=== PATIENT | male | born 1955 | race Caucasian/White ===

== ENCOUNTER 2017-07-04 03:52 | Observation (INO) | payer OTHER ==
[2017-07-04] MEDS ORDERED: Enoxaparin(*) 80 MG/0.8 ML SYR SUBCUT ONE (04:20)
--- NOTE | 2017-07-04 04:36 | ED ---
Valdemar Cao Tecjoon, scribed for Manju Sellers MD on 07/04/17 at 0434 . HPI Chest Pain - HPI Summary HPI Summary: This patient is a 61 year old male BIBA to [facility] with a chief complaint of chest pain since 2100 today. Patient states that he had heart palpitations. [facility]. 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 The pain is rated 0/10 in severity. Symptoms aggravated by nothing. Symptoms alleviated by nothing. - History of Current Complaint Chief Complaint: EDChestPainROMI Time Seen by Provider: 07/04/17 03:59 Hx Obtained From: Patient Onset/Duration: Started Hours Ago, Resolved Timing: Constant Initial Severity: Moderate Current Severity: None Pain Intensity: 0 Pain Scale Used: 0-10 Numeric Aggravating Factor(s): Nothing Alleviating Factor(s): Nothing Associated Signs and Symptoms: Positive: Other: - palpitations - Allergy/Home Medications Allergies/Adverse Reactions: Allergies Allergy/AdvReac Type Severity Reaction Status Date / Time No Known Allergies Allergy Verified 07/04/17 04:15 PMH/Surg Hx/FS Hx/Imm Hx Previously Healthy: No Endocrine/Hematology History: Reports: Hx Thyroid Disease Cardiovascular History: Reports: Hx Hypertension, Hx Supraventricular Ventricular Tachycardia Opthamlomology History: Denies: Hx Legally Blind EENT History: Denies: Hx Deafness Infectious Disease History: No Infectious Disease History: Denies: Traveled Outside the [place] in Last 30 Days - Family History Known Family History: Positive: Hypertension - Social History Alcohol Use: None Hx Substance Use: No Substance Use Type: Reports: None Hx Tobacco Use: No Smoking Status (MU): Never Smoked Tobacco Review of Systems Negative: Fever Positive: Palpitations, Chest Pain All Other Systems Reviewed And Are Negative: Yes Physical Exam - Summary Physical Exam Summary: VITAL SIGNS: Reviewed. GENERAL: Patient is a well-developed and nourished male who is lying comfortable in the stretcher. Patient is not in any acute respiratory distress. HEAD AND FACE: No signs of trauma. No ecchymosis, hematomas or skull depressions. No sinus tenderness. EYES: PERRLA, EOMI x 2, No injected conjunctiva, no nystagmus. EARS: Hearing grossly intact. Ear canals and tympanic membranes are within normal limits. MOUTH: Oropharynx within normal limits. NECK: Supple, trachea is midline, no adenopathy, no JVD, no carotid bruit, no c- spine tenderness, neck with full ROM. CHEST: Symmetric, no tenderness at palpation LUNGS: Clear to auscultation bilaterally. No wheezing or crackles. CVS: Irregular heartbeat ABDOMEN: Soft, non-tender. No signs of distention. No rebound no guarding, and no masses palpated. Bowel sounds are normal. EXTREMITIES: FROM in all major joints, no edema, no cyanosis or clubbing. NEURO: Alert and oriented x 3. No acute neurological deficits. Speech is normal and follows commands. SKIN: Dry and warm Triage Information Reviewed: Yes Vital Signs On Initial Exam: Initial Vitals Temp Pulse Resp BP Pulse Ox 98.3 F 70 16 122/97 96 07/04/17 04:02 07/04/17 04:02 07/04/17 04:02 07/04/17 04:02 07/04/17 04:02 Vital Signs Reviewed: Yes Diagnostics - Vital Signs Vital Signs Temp Pulse Resp BP Pulse Ox 07/04/17 04:02 98.3 F 70 16 122/97 96 - Laboratory Lab Statement: Any lab studies that have been ordered have been reviewed, and results considered in the medical decision making process. - EKG 0423 Cardiac Rate: NL EKG Rhythm: Atrial Fibrillation - 81 BPM EKG Interpretation: A fib (81 BPM), Normal axis, normal interval, no ischemic changes. Chest Pain Course/Dx - Course Course Of Treatment: This patient is a 61 year old male BIBA to [facility] with a chief complaint of chest pain since 2100 today. Patient states that he had heart palpitations. [facility] went to [facility]. 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 An EKG, taken 422, reveals A fib (81 BPM), Normal axis, normal interval, no ischemic changes. In the ED course the patient was given Enoxparin. We discussed patient care with Dr. Melton (Hospitalist) and they agreed to admit the patient. Patient will be admitted with a diagnosis of atrial fibrillation. The patient is agreeable with this plan. - Diagnoses Provider Diagnoses: Atrial fibrillation - Provider Notifications Discussed Care Of Patient With: Rui Melton - Hospitalist Time Discussed With Above Provider: 04:34 - We discussed patient care with Dr. Melton (Hospitalist) and they agreed to admit the patient. Instructed by Provider To: Admit As Inpatient Discharge - Sign-Out/Discharge Documenting (check all that apply): Discharge - admitted - Discharge Plan Condition: Stable Disposition: ADMITTED TO [facility] The documentation as recorded by the Valdemar us Tecjoon accurately reflects the service I personally performed and the decisions made by , Manju Sellers MD.
[2017-07-04] MEDS ORDERED: Diltiazem DRIP* 100 MG/100 ML ADDV.BAG IVPB SCH (05:00)
[2017-07-04] MEDS ORDERED: Diltiazem IV VIAL* 125 MG in NS 0.9% 100 ML* 100 ML IV SCH ×3 (05:30→06:02)
[2017-07-04] MEDS: Diltiazem TAB* 30 MG PO SCH ×2 (06:06→13:03)
[2017-07-04 06:20] LABS: ABS Basophils 0 10^3/ul (0-0.2); ABS Eosinophils 0 10^3/ul (0-0.6); ABS Lymphocytes 0.8 10^3/ul (1.0-4.8); ABS Monocytes 0.5 10^3/ul (0-0.8); ABS Neutrophils 6.5 10^3/ul (1.5-7.7); ABS Nucleated RBC 0 10^3/ul; Eosinophil % 0.2 % (0-6); Hematocrit 48 % (42-52); Hemoglobin 16.8 g/dl (14.0-18.0); Lymphocyte % 10.6 % (25-47); Mean Corpuscular HGB Conc 35 g/dl (31-36); Mean Corpuscular Hemoglobin 32 pg (27-31); Mean Corpuscular Volume 90 fL (80-94); Mean Platelet Volume 7.3 um3 (7.4-10.4); Nucleated Red Blood Cells % 0.1; Platelet Count 237 10^3/ul (150-450); Red Blood Count 5.29 10^6/ul (4.0-5.4); Red Cell Distribution Width 14 % (10.5-15); White Blood Count 7.9 10^3/ul (3.5-10.8)
[2017-07-04] MEDS ORDERED: Levothyroxine TAB* 50 MCG TAB PO SCH ×2 (06:30→08:00)
[2017-07-04 06:50] LABS: EGFR Non-African American 93.6 (>60)
[2017-07-04] MEDS ORDERED: Lisinopril TAB* 10 MG PO SCH (09:00)
[2017-07-04] MEDS ORDERED: CMC:Dabigatran CAP(NF) 150 MG CAP PO SCH (09:00)
[2017-07-04 13:13] VITALS: BP 108/68
--- NOTE | 2017-07-04 15:19 | HP ---
CC: Dr. Gan, [facility] ADMISSION HISTORY AND PHYSICAL: DATE OF ADMISSION: 07/04/17 CHIEF COMPLAINT: Palpitations. HISTORY OF PRESENT ILLNESS: Mr. Siegel is a 61-year-old man with history of hypertension, who developed chest discomfort and palpitations around 2100 the night prior to admission. The patient felt lightheaded and he drove himself to the [facility] ER. The patient denied any shortness of breath, nausea, vomiting, or radiation of the pain to his neck or arm. He did feel that his chest was tender and he thought that he just had some chronic rib pain that was little bit worse. In the ER in [place], he was found to have narrow complex tachycardia and was given adenosine for presumed SVT. 12 mg of adenosine did slow the heart rate briefly to unmask atrial fibrillation for which he was started on diltiazem drip. The hospital did not have Cardiology available, so the patient was transferred from that ER to our ER for admission to this hospital. The ER notes show that the patient was questioned about history of atrial fibrillation and he was apparently told that he had brief episodes of AFib in the past and saw a assistant corporation counsel at [facility] some years ago. The patient minimizes all his symptoms. PAST MEDICAL HISTORY: Includes hypothyroidism, hypertension. PAST SURGICAL HISTORY: None. MEDICATIONS ON ADMISSION: 1. Lisinopril 20 mg p.o. daily. 2. Levothyroxine 75 and 50 mcg on alternating days. ALLERGIES: None. FAMILY HISTORY: Notable for father at age 82 of heart attack. His mother is alive at age 94. His sister is alive and well. 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 He has no children. His sister, Osman Siegel, is his healthcare proxy. He never smoked. Uses alcohol rarely. No recreational drugs. REVIEW OF SYSTEMS: The patient denies any fevers, weight loss, anorexia. The patient denies any cough, hemoptysis, shortness of breath. The patient denies any nausea, vomiting, but he did feel some abdominal discomfort like a pounding in his abdomen when his heart was going fast. The patient denies any hematuria or dysuria. Remainder of 14-point review of systems is negative other than mentioned in the HPI. PHYSICAL EXAMINATION GENERAL: He is alert, in no acute distress. VITAL SIGNS: His temperature is 38.3, pulse 74, respirations 16, blood pressure is 120/94, O2 sat is 96%. HEENT: Head is normocephalic, atraumatic. Sclerae anicteric. Pupils are equal , round, reactive to light and accommodation. Oropharynx is moist. No lesions. NECK: No JVD. No carotid bruits. No thyromegaly. LUNGS: Clear to auscultation and percussion bilaterally. HEART: Irregular with no murmurs. ABDOMEN: Soft, nontender, positive bowel sounds. No hepatosplenomegaly. EXTREMITIES: No peripheral edema. Dorsalis pedis pulses are 1+ bilaterally. NEUROLOGIC: Cranial nerves II through XII are intact. Motor strength is 5/5 throughout. Deep tendon reflexes are symmetric. He is alert and oriented x3. He speaks in short sentences, appears a little autistic. DIAGNOSTIC STUDIES/LAB DATA: Sodium 141, potassium 3.6, chloride 105, bicarb 28, BUN 23, creatinine 1.1, glucose 187, calcium 8.6. AST 26, ALT 26. TSH 3.16. Troponin 0.06. White count 6.25, hemoglobin 15.6, hematocrit 43.9, platelets are 223. EKG shows atrial fibrillation with rapid ventricular response at 156 beats per minute, no ischemic changes. Chest x-ray is negative for infiltrates or effusions. The above labs were obtained at [facility] and sent over from there to the ER. ASSESSMENT AND PLAN: The patient has recurrent or new atrial fibrillation with rapid ventricular response. The patient was started on diltiazem drip in [place] and this was 5 mg an hour at this point. The patient will be admitted to telemetry and continued on diltiazem drip. He will be started on oral diltiazem and we can wean him off the drip today and send him home on long- acting diltiazem most likely. The patient may have had atrial fibrillation triggered by ischemia or infection. He will have serial troponins and telemetry monitoring to rule out cardiac ischemia. He has low-grade fever at this point and he will have repeat white count upon admission to this hospital. If he has continued fevers or elevated white count, he will need a urinalysis and blood cultures. For his hypertension, we will continue him on his lisinopril. For his hypothyroidism, his TSH appears normal, so this is not contributing to the rapid atrial fibrillation. He will continue on the same dose of levothyroxine. Code status is full. He was given a dose of Lovenox in the emergency room here for anticoagulation for atrial fibrillation. I will be switching him to direct-acting oral anticoagulant in anticipation of discharging him within the next 24 hours once rate control is obtained. He does not need any further DVT prophylaxis. [id number]/[facility] #: [id number] [facility]USAnais
--- NOTE | 2017-07-05 00:58 | DS ---
CC: Dr. Gan DISCHARGE SUMMARY: DATE OF ADMISSION: 07/04/17 DATE OF DISCHARGE: 07/04/17 PRIMARY CARE PROVIDER: Dr. Gan. DISCHARGE DIAGNOSIS: Paroxysmal atrial fibrillation. SECONDARY DIAGNOSES: 1. Hypertension. 2. Hypothyroidism. MEDICATIONS: 1. Lisinopril 20 mg p.o. daily. 2. Levothyroxine 50 mcg alternating with 75 mcg. New medications: 1. Cardizem CD 120 mg p.o. daily. 2. Rivaroxaban 20 mg p.o. daily. HOSPITAL COURSE: Mr. Siegel is a 61-year-old man with a past medical history as stated above who prese nted to the emergency room at [facility] with complaints of palpitations. The patient states t hat he developed chest discomfort and palpitations around 9:00, the night prior to admission. He sta chico he lied in bed and he could feel his heart beating fast in his ear. As per HPI in the emergency room at [facility], he was found to have a narrow complex tachycardia and was given adenosine for presumed SVT and this unmasked atrial fibrillation for which he was started on Cardizem drip. He was transferred to our hospital for further evaluation. In further conversation with the patient, he may have had similar episodes in the past that he descri bes as brief and he did not seek medical attention for them. 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 His atrial fibrillation was well controlled with the Cardizem drip and he was started on anticoagulat ion with Pradaxa. In the middle of the morning, the patient converted to normal sinus rhythm spontan eously and was very anxious for discharge. I explained that if he stayed a little longer, he could jacobson ve further cardiac evaluation including an echocardiogram and Cardiology consultation, but the patien t was anxious return to his home. At this point, he is asymptomatic, back in normal sinus rhythm and I believe he can pursue his workup as an outpatient with his primary care provider. His CHADS score is 1 (hypertension), but I believe he should be on anticoagulation due to the paroxysmal nature of his episodes until he has further ca rdiac evaluation to then decide if his anticoagulation should be continued or not. The patient had serial troponins that were negative. His TSH was normal. There is mention of mild f ever and concern for possible infection, but he was afebrile with a normal white cell count in our fa cility and offered no other complaints, but as noted in the HPI, I do agree that the patient minimize s all his symptoms and he was really anxious to leave the facility. PHYSICAL EXAMINATION: General: The patient is a pleasant gentleman, sitting up in bed, in no acute distress. Vital Signs: Temperature 97.9, heart rate is 56, respiratory rate 20, oxygen saturation 9 9% on room air, blood pressure is 108/68. CVS: Normal S1, S2. Regular rate and rhythm. Chest: Carola ath sounds present bilaterally with no added sounds. Abdomen: Soft, nontender, nondistended. Bowel sounds present. Extremities: No edema. Neuro: He is alert and oriented x3, able to move all 4 ex tremities. DIET: Heart healthy diet. The patient was advised to avoid caffeine and alcohol. ACTIVITY: As tolerated. DISPOSITION: To home. STATUS WHILE IN THE HOSPITAL: Observation. Please note that the patient was started on Pradaxa while in the hospital, but after his discharge, h is pharmacy called and stated that Pradaxa is not covered by his insurance and the preferred medicati on is Xarelto, so for that reason, his prescription was changed and the patient was called and inform ed about the medication change. Please keep in mind this is a summarized version of this patient's ho spital stay. If you need more information, please feel free to call me at or please ob tain the full medical records. Approximately 45 minutes was spent to complete this discharge. [id number]/[facility] #: [id number]
[2017-07-05] MEDS ORDERED: Levothyroxine TAB* 75 MCG TAB PO SCH (08:00)
== END 2017-07-04 14:45 | disposition home or self-care (01) ==
LOC: ED 03:52 → MEDTELE 04:22 → UNDOADMIN 04:22 → MEDTELE 10:30 → INTOOBSV 10:30 → UNDODISIN 14:45
PROVIDERS: ADMIT Internal Medicine; ATTEND Internal Medicine
DX: I48.0 Paroxysmal atrial fibrillation (principal); I10 Essential (primary) hypertension; R00.2 Palpitations; R07.9 Chest pain, unspecified; E03.9 Hypothyroidism, unspecified
CPT/HCPCS: 36415; 80048; 83735; 84443; 84484; 85025; 93005; 99284; A9270-GY; G0378; J1650

== ENCOUNTER 2023-11-22 15:27 | Observation (INO) ==
[2023-11-22 16:19] LABS: Urine Appearance Clear; Urine Bilirubin Negative (Negative); Urine Blood Negative (Negative); Urine Color Colorless; Urine Glucose Negative (Negative); Urine Ketones Negative (Negative); Urine Nitrite Negative (Negative); Urine Protein Negative (Negative); Urine Specific Gravity 1.012 (1.002-1.030); Urine Urobilinogen Negative (Negative)
[2023-11-22] MEDS ORDERED: Metoprolol Tartrate 5 mg VIAL 5 ml VIAL (1 mg/ml) IV PRN (16:46)
[2023-11-22] MEDS ORDERED: Polyethylene Glycol 3350 17 GM PACKET PO PRN (17:26)
[2023-11-23 06:01] LABS: ABS Eosinophils 0.1 10^3/uL (0.0-0.5); ABS Lymphocytes 1.2 10^3/uL (1.0-4.8); ABS Monocytes 0.6 10^3/uL (0.0-1.1); ABS Neutrophils 4.3 10^3/uL (1.5-7.6); Eosinophil % 1.7 %; Hematocrit 40.4 % (38-53); Hemoglobin 13.8 g/dL (13.2-16.3); Lymphocyte % 19.1 %; Mean Corpuscular Hgb Conc 34.3 g/dL (31-36); Mean Corpuscular Volume 87.5 fL (80-97); Mean Platelet Volume 7.5 fL (7.5-11.2); Platelet Count 221 10^3/uL (150-450); Red Blood Count 4.61 10^6/uL (4.06-5.63); Red Cell Distribution Width 14.2 % (12-17); White Blood Count 6.2 10^3/uL (3.6-10.2)
[2023-11-23 07:02] LABS: Calcium 8.8 mg/dL (8.6-10.3); Creatinine, Serum 0.84 mg/dL (0.67-1.17); Magnesium 2.1 mg/dL (1.9-2.7); Phosphorus 5.1 mg/dL (2.5-5.0); Potassium 4.9 mmol/L (3.5-5.0); eGFR CKD-EPI 93.8 (>60)
[2023-11-23 10:00] VITALS: BP 119/90
[2023-11-23 12:35] LABS: HDL Cholesterol 39.9 mg/dL
== END 2023-11-23 15:00 | disposition home or self-care (01) ==
LOC: EDHOLD 15:27 → ED 15:27 → SUATTDRO 16:08 → MEDTELE 17:16
PROVIDERS: ADMIT Internal Medicine; ATTEND Internal Medicine